=== PATIENT | female | born 1980 | race Caucasian/White ===

== ENCOUNTER 2023-08-28 17:51 | Emergency (ER) | payer MEDICAID ==
[~2023-08-28] VITALS: Ht 160 cm; Wt 72.3 kg
[~2023-08-28 17:51] MED LIST: ASPI-130 PO
[2023-08-28 18:15] VITALS: BP 133/91; PULSE 96; RESP 16; TEMP 99; O2SAT 100
== END 2023-08-28 20:21 | disposition left against medical advice (07) ==
LOC: ER 17:52
DX: N63.20 Unspecified lump in the left breast, unspecified quadrant (principal); Z53.21 Procedure and treatment not carried out due to patient leaving prior to being seen by health care provider
CPT/HCPCS: 99281

== ENCOUNTER 2023-08-29 16:09 | Outpatient (CLI) | payer MEDICAID | END 2023-08-29 23:59 | disposition home or self-care (01) | LOC: LAB 16:09 | PROVIDERS: ATTEND Surgery | DX: N61.0 Mastitis without abscess (principal) | CPT/HCPCS: 87070 ==